=== PATIENT | male | born 2005 | race Caucasian/White ===

== ENCOUNTER → 2024-11-22 | Outpatient (CLI) | payer BC, SELFPAY ==
--- NOTE | 2024-11-22 11:51 | XR_ITS ---
Examination: Lumbar spine 3 views Technique one AP lateral coned lateral lower lumbar spine 3 views INDICATIONS: Lifting injury to lower back one month ago, lower back pain FINDINGS: Satisfactory alignment lumbar vertebral bodies No lumbar fracture. No lumbar disc narrowing IMPRESSION: Negative examination
== END | disposition home or self-care (01) ==
PROVIDERS: PCP Physician Assistant; Referring Provider Physician Assistant; Visit Provider Physician Assistant
DX: S39.92XD Unspecified injury of lower back, subsequent encounter (principal); X58.XXXD Exposure to other specified factors, subsequent encounter
CPT/HCPCS: 72100